=== PATIENT | female | born 1995 | race Hispanic/Latino ===

== ENCOUNTER 2022-05-12 04:37 | Emergency (ER) | payer BC, MEDICAID, OTHER ==
[~2022-05-12] VITALS: Ht 157.5 cm; Wt 65.8 kg
[2022-05-12 04:39] VITALS: BP 140/99
[2022-05-12] MEDS ORDERED: AMOX500C2 PO (04:53)
[2022-05-12] MEDS ORDERED: IBUP-1493 PO (04:53)
[2022-05-12] MEDS ORDERED: KETOROLAC 60 MG VIAL (30MG/ML) IM ONE ×2 (04:58→05:00)
[2022-05-12] MEDS ORDERED: AMOXICILLIN 500 MG CAPSULE PO ONE ×2 (04:59→05:00)
== END 2022-05-12 05:21 | disposition home or self-care (01) ==
LOC: EDH 04:37
DX: H66.92 Otitis media, unspecified, left ear (principal)
CPT/HCPCS: 99284; 96372; J1885

== ENCOUNTER → 2025-04-16 | Outpatient (CLI) | payer BC ==
[~2025-04-16] MED LIST: AMOX500C2 PO; IBUP-1493 PO; IOHEXOL-350 50ML VIAL IV ONE; LIDOCAINE HCL 1% 20 ML VIAL ONE
--- NOTE | 2025-04-16 10:44 | HMCIMG ---
THORASCOPIC GUIDED LEFT HIP ARTHROGRAM. INDICATION: HIP PAIN DISCUSSION: The risk, benefit, alternative and possible complications were explained to the patient in detail and written informed consent was obtained. The patient was placed supine on the table. The left hip was prepped and draped in the usual sterile fashion after obtaining consent from the patient. 1% lidocaine without epinephrine was used for local anesthesia. Under fluoroscopic guidance, a 22 gauge needle was introduced into the left hip joint. A 10 cc mixture of 0.5 cc of MultiHance; 17 mL of saline and 4 mL of Isovue 300 was prepared. 12 cc of the combination solution was then injected into the left hip joint. The needle was removed and there were no immediate complications. A few fluoroscopic images were obtained in various projections. There were no complication and the patient tolerated the procedure. The patient was taken to the MR suite for MR arthrogram. IMPRESSION: Status post uneventful intraarticular gadolinium injection of the left hip for MR arthrogram as described above.
--- NOTE | 2025-04-16 13:27 | HMCIMG ---
EXAM: MR Left Lower Extremity Without IV Contrast, Hip. CLINICAL HISTORY: S73.192A ??? Other sprain of left hip, initial encounter. Patient complains of numbness and inability to bear weight following arthrogram injection. TECHNIQUE: Multisequence, multiplanar magnetic resonance images of the left hip without intravenous contrast. Series acquired: 3 - COR STIR LT - TR: 4656.0 - TE: 52.3 - ET: 15.0 - Thk: 4.0 4 - COR T2 LT - TR: 3385.0 - TE: 105.8 - ET: 17.0 - Thk: 4.0 5 - COR T1 LT - TR: 473.0 - TE: 17.1 - ET: 4.0 - Thk: 4.0 6 - AX T2 FS LT - TR: 4532.0 - TE: 65.2 - ET: 16.0 - Thk: 4.0 7 - AX T1 LT - TR: 594.0 - TE: 13.3 - ET: 9.0 - Thk: 4.0 8 - AX STIR LT - TR: 4266.0 - TE: 47.6 - ET: 15.0 - Thk: 4.0 9 - SAG T2 LT - TR: 5138.0 - TE: 104.6 - ET: 14.0 - Thk: 4.0 10 - SAG 2D MERGE LT - TR: 1053.2 - TE: 13.9 - ET: 4.0 - Thk: 4.0 13 - G+ SAG T1 FS LT - TR: 679.0 - TE: 17.2 - ET: 5.0 - Thk: 4.0 15 - G+ COR T1 FS LT - TR: 682.0 - TE: 17.1 - ET: 5.0 - Thk: 4.0 16 - G+ AX T1 FS LT - TR: 643.0 - TE: 14.1 - ET: 7.0 - Thk: 4.0 CONTRAST: None. COMPARISON: None provided.FINDINGS: TENDONS: FLEXORS: Iliopsoas tendon demonstrates peritendinous T2/STIR hyperintensity with surrounding myofascial edema at and near its insertion on the lesser trochanter. Associated localized fluid collection measuring approximately ___ cm (T2 hyperintense, T1 hypointense) consistent with postprocedural inflammatory fluid. EXTENSORS / HAMSTRING: Intact. No edema, tear, or tendinosis. ABDUCTORS: Gluteus medius and minimus tendons intact. No evidence of tendinopathy or peritendinous fluid. ADDUCTORS: Intact and symmetric. No tear or edema. ROTATORS: Piriformis and short external rotators normal in morphology and signal. BONES: Normal marrow signal intensity. No evidence of fracture, osteonecrosis, or marrow edema. MUSCLES: Mild myofascial edema involving the iliacus and proximal psoas muscles. Remaining hip musculature demonstrates normal signal and bulk. FLUID: Small localized anterior and peritendinous fluid collection adjacent to the iliopsoas insertion and anterior hip soft tissues. No significant intra-articular effusion. LABRUM: No discrete tear, detachment, or paralabral cyst identified. Contrast distribution from prior arthrogram is within the joint capsule without extravasation. CARTILAGE: Femoral head and acetabular cartilage smooth and intact. No focal chondral defect.IMPRESSION: * Postprocedural myofascial and peritendinous changes involving the iliopsoas tendon with localized fluid collection near the lesser trochanter and anterior hip soft tissues ??? likely secondary to recent arthrogram injection. * No evidence of labral tear, osseous injury, or hip joint effusion. * No muscular or tendinous tear elsewhere.RADIOLOGIC???CLINICAL CORRELATION: The imaging features represent post-arthrogram localized fluid tracking along the iliopsoas tendon and anterior hip fascia, favored sterile and procedure-related rather than infective. Overall, the hip joint and periarticular structures remain structurally intact. /[place]
== END | disposition home or self-care (01) ==
LOC: RAH 08:17
PROVIDERS: ATTEND Orthopaedic Surgery
DX: S73.192A Other sprain of left hip, initial encounter (principal); Z79.899 Other long term (current) drug therapy; X58.XXXA Exposure to other specified factors, initial encounter; Y93.89 Activity, other specified; Y92.89 Other specified places as the place of occurrence of the external cause; Y99.8 Other external cause status
CPT/HCPCS: 73723; 77002; 27093; Q9967; 73525

== ENCOUNTER 2025-06-18 16:07 | Emergency (ER) | payer BC ==
[~2025-06-18] VITALS: Ht 157.5 cm; Wt 72.6 kg
[~2025-06-18 16:07] MED LIST changes: -IOHEXOL-350 50ML VIAL IV ONE; -LIDOCAINE HCL 1% 20 ML VIAL ONE
--- NOTE | 2025-06-18 16:16 | ERN ---
ED Note History of Present Illness Stated Complaint: PELVIC PAIN Chief Complaint: Pelvic Pain Time Seen by MD: 16:10 Dictation: PATIENT IS A 29-YEAR-OLD FEMALE HERE WITH COMPLAINTS OF INTERMITTENT LEFT ADNEXAL PAIN THAT GOT WORSE THIS AFTERNOON AT 14:00 HOURS. NO VAGINAL BLEEDING NO CHANGE IN URINATION. SHE HAS NO FLANK PAIN SHE STATES HER OB HIS DOCTOR JUAN PABLO BEAUCHAMP SHE SAW HIM ABOUT THE SAME PAIN AND HE TOLD HER HE WOULD DO A WORKUP AND SHE NEEDED AN ULTRASOUND HOWEVER ALL HE ORDERED WITH SOME LABS. PATIENT STATES SHE HAS HAD MULTIPLE TEST AND THEY ARE NEGATIVE HER LAST MENSTRUAL PERIOD WAS IN JANUARY 2025. Allergies: Coded Allergies: No Known Drug Allergies (Unverified Allergy, Unknown, 05/12/22) Home Meds Active Scripts Ibuprofen (Motrin/Advil) 800 Mg Tab, 800 MG PO TID, #30 TAB Prov:AGUSTIN TINAJERO MD 05/12/22 Amoxicillin (Amoxicillin) 500 Mg Capsule, 500 MG PO TID for 10 Days, #30 CAP 0 Refills Prov:AGUSTIN TINAJERO MD 05/12/22 Past Medical History Past Medical History: Other Additional Past Medical Hx: ENDOMETRIOSIS Surgical History: None Family History: Negative Social History: Negative, Lives with family LMP: Feb 03, 2025 RN Note Reviewed/Agreed w/PFSH: Yes Review of System Dictation CONSTITUTIONAL: NEGATIVE EXCEPT FOR HPI HEAD/FACE: NEGATIVE EXCEPT FOR HPI EENT: NEGATIVE EXCEPT FOR HPI RESPIRATORY: NEGATIVE EXCEPT FOR HPI GASTROINTESTINAL/ABDOMINAL: NEGATIVE EXCEPT FOR HPI INTERMITTENT LEFT ADNEXAL/PELVIC PAIN GENITOURINARY: NEGATIVE EXCEPT FOR HPI MUSCULOSKELETAL: NEGATIVE EXCEPT FOR HPI INTEGUMENTARY: NEGATIVE EXCEPT FOR HPI NEUROLOGICAL/PSYCH: NEGATIVE EXCEPT FOR HPI HEMATOLOGIC/LYMPHATIC: NEGATIVE EXCEPT FOR HPI ALL SYSTEMS NEGATIVE, EXCEPT NOTED ABOVE. 13 POINT REVIEW OF SYSTEMS ASSESSED AND ALL NEGATIVE EXCEPT FOR ABOVE. Initial Vital Sign VS Vital Signs Date Time Temp Pulse Resp B/P (MAP) Pulse Ox O2 Delivery O2 Flow Rate FiO2 06/18/25 16:09 97.9 81 20 128/61 99 Room Air 06/18/25 16:45 0 21 Physical Exam Dictation VITAL SIGNS REVIEWED GENERAL APPEARANCE: ALERT, ORIENTED X 3, MILD ACUTE DISTRESS, WELL DEVELOPED, NOURISHED. HEAD AND FACE: NON-TRAUMATIC. EYES: PERRL, PINK CONJUNCTIVAS, EYELID NO TRAUMA, ANTERIOR CHAMBER WITH ARCUS SENILIS. EARS: PINNAS INTACT AND NO SIGNS OF TRAUMA OR ERYTHEMA EAR CANALS CLEAR AND NO DISCHARGE TM NO ERYTHEMA NOSE: NO DISCHARGE, NO BLEEDING. OROPHARYNX: MOUTH NORMAL, TONGUE PINK, PHARYNX CLEAR,NO ERYTHEMA, TONSILS NO EXUDATES, NO ABSCESSES NOTED, MUCOUS MEMBRANE MOIST NECK: SUPPLE, NON-TENDER, NO THYROMEGALY, NO MASSES, NO JVD, NO BRUITS BREAST:DEFERRED CHEST:NO TENDERNESS, NO CREPITUS, NO PARADOXICAL MOVEMENT, NO RETRACTIONS LUNGS:CLEAR, WELL-VENTILATED, SYMMETRIC, NO RALES, NO WHEEZING, NO RHONCHI, NO STRIDOR, GOOD BREATH SOUNDS BILATERALLY HEART: REGULAR RATE, REGULAR RHYTHM, NO MURMUR, NO GALLOPS VASCULAR: NO PERIPHERAL EDEMA, ABDOMEN: SOFT, POSITIVE BOWEL SOUNDS, NONDISTENDED, NO GUARDING, [id number] LEFT LOWER ADNEXAL PELVIC PAIN. RECTAL: DEFERRED GENITAL: DEFERRED NEUROLOGICAL: NORMAL SPEECH, MOTOR FUNCTION INTACT, SENSORY FUNCTION INTACT MUSCULOSKELETAL: NECK NONTENDER, FULL RANGE OF MOTION, BACK NONTENDER, FULL RANGE OF MOTION, EXTREMITIES: NONTENDER, FULL RANGE OF MOTION SKIN: COLOR PINK, DRY, NO TURGOR, NO RASH, NO LACERATIONS, NO ABRASIONS, NO CONTUSIONS. LYMPHATIC: DEFERRED Results (Laboratory/Radiology) Laboratory/Radiology Laboratory Tests Test 06/18/25 16:55 White Blood Count 9.8 K/uL (4.8-10.8) Red Blood Count 4.14 MIL/uL (4.00-5.50) Hemoglobin 12.9 g/dL (12.0-16.0) Hematocrit 37.2 % (36-48) Mean Corpuscular Volume 89.9 fL (79-99) Mean Corpuscular Hemoglobin 31.2 pg (27.0-33.0) Mean Corpuscular Hemoglobin Concent 34.7 g/dL (32.0-36.0) Red Cell Distribution Width 13.2 % (11.0-15.5) Platelet Count 407 K/uL (130-400) H Mean Platelet Volume 9.0 fL (7.5-10.5) Immature Granulocyte % (Auto) 0.3 % (0-1) Neutrophils (%) (Auto) 63.1 % (40.0-77.0) Lymphocytes (%) (Auto) 27.9 % (21.0-51.0) Monocytes (%) (Auto) 6.1 % (3.0-13.0) Eosinophils (%) (Auto) 1.9 % (0.0-8.0) Basophils (%) (Auto) 0.7 % (0.0-5.0) Neutrophils # (Auto) 6.2 K/uL (1.8-7.7) Lymphocytes # (Auto) 2.7 K/uL (1.0-4.8) Monocytes # (Auto) 0.6 K/uL (0.1-1.0) Eosinophils # (Auto) 0.19 K/uL (0.00-0.70) Basophils # (Auto) 0.07 K/uL (0.00-0.20) Absolute Immature Granulocyte (auto 0.03 K/uL (0-1) Nucleated Red Blood Cells 0.0 % (0.0-0.19) Sodium Level 137 mmol/L (136-145) Potassium Level 3.5 mmol/L (3.5-5.1) Chloride Level 106 mmol/L (101-111) Carbon Dioxide Level 23 mmol/L (21-32) Blood Urea Nitrogen 5 mg/dL (7-18) L Creatinine 0.9 mg/dL (0.5-1.0) Glomerular Filtration Rate Calc 89 mL/min (>90) Random Glucose 83 mg/dL (70-105) Total Calcium 9.1 mg/dL (8.5-10.1) Serum Test, Qualitative NEGATIVE (NEGATIVE) 1728/NON OB ULTRASOUND DEMONSTRATES A COMPLEX LEFT OVARIAN CYST SIZE 1.7 X 2.1 X 1.6 CM POSITIVE BLOOD FLOW TO BOTH OVARIES Labs Reviewed?: Yes ED Course ED Course Orders Procedure Category Date Status Time Us Pelvic Non-Ob US 06/18/25 Resulted Limited 16:12 Cbc With Differential LAB 06/18/25 Complete 16:12 Urinalysis Profile LAB 06/18/25 Logged 16:12 Basic Metabolic Panel LAB 06/18/25 Complete 16:12 Testing, LAB 06/18/25 Complete Serum Hcg 16:12 Acetaminophen 500mg PHA 06/18/25 Complete Tab (Tylenol 500mg T 16:30 Ondansetron 4mg Inj PHA 06/18/25 Complete (Zofran 4mg Inj) 17:16 0.9%Nacl 1000ml (Ns PHA 06/18/25 Complete 1000ml) 17:30 Ondansetron 4mg Inj PHA 06/18/25 Complete (Zofran 4mg Inj) 17:30 Ketorolac PHA 06/18/25 Complete Tromethamine 30mg/Ml 17:30 Ketorolac PHA 06/18/25 Complete Tromethamine 30mg/Ml 17:29 Current Medications Medications (Trade) Dose Ordered Sig/Angela Route PRN Reason Start Time Stop Time Status Last Admin Dose Admin Acetaminophen (TYLenol 500MG TAB) 1,000 mg ONCE ONCE PO 06/18/25 16:30 06/18/25 16:31 DC 06/18/25 16:41 Ketorolac Tromethamine (toRADol) 30 mg ONCE ONCE IVP 06/18/25 17:30 06/18/25 17:31 DC 06/18/25 17:32 Ketorolac Tromethamine (toRADol) 30 mg STK-MED ONCE .ROUTE 06/18/25 17:29 06/18/25 17:29 DC Ondansetron HCl (zoFRAN 4MG INJ) 4 mg ONCE ONCE IVP 06/18/25 17:30 06/18/25 17:31 DC 06/18/25 17:32 Ondansetron HCl (zoFRAN 4MG INJ) 4 mg STK-MED ONCE .ROUTE 06/18/25 17:16 06/18/25 17:16 DC Sodium Chloride 1,000 ml @ 0 mls/hr ONCE ONCE IV 06/18/25 17:30 06/18/25 17:31 DC 06/18/25 17:30 Vital Signs Date Time Temp Pulse Resp B/P (MAP) Pulse Ox O2 Delivery O2 Flow Rate FiO2 06/18/25 16:45 98.4 90 18 121/76 99 Room Air* 0 21 06/18/25 16:41 97.9 06/18/25 16:09 97.9 81 20 128/61 99 Room Air 1800/DISCUSSED CLINICAL FINDINGS WITH PATIENT. THIS INCLUDES THE NON OB ULTRASOUND THAT DEMONSTRATES A RIGHT OVARIAN CYST POSITIVE BLOOD FLOW TO BOTH OVARIES SHE IS CURRENTLY OUT OF PAIN IN HIS AWARE TO FOLLOW UP WITH DR. BEAUCHAMP IN THE NEXT 1-2 DAYS IF PAIN GETS WORSE. Medical Decision Making MDM MDM: DIFFERENTIAL DIAGNOSIS: ECTOPIC /PELVIC PAIN/HERNIA/PAIN OF /UTI/ELECTROLYTE IMBALANCE/DEHYDRATION RATIONALE: TESTS CONSIDERED AND ORDERED SECONDARY TO SHARED DECISION MAKING INCLUDE: LABS/RADIOLOGY PREVIOUS OUTSIDE RECORDS REVIEWED: OLD ER VISITS. RISK OF COMPLICATION AND/OR MORBIDITY OR MORTALITY OF PATIENT MANAGEMENT: NONE MEDICATIONS-PER MEDICATION RECONCILIATION NEED FOR HOSPITALIZATION: PATIENT DOES NOT MEET CRITERIA FOR HOSPITALIZATION. NONE NEED FOR EMERGENCY MAJOR/MINOR SURGERY: NO THERE ARE NO SOCIAL CONCERNS WITH THIS PATIENT. PRESCRIPTION DRUG MANAGEMENT IBUPROFEN PRESCRIPTIONS WILL INCLUDE SYMPTOMATIC CARE PATIENT'S PRIOR EXTERNAL MEDICAL RECORDS FROM OTHER ER VISITS WERE REVIEWED BY ME INDICATED. PRIOR TESTING AND RESULTS FROM PREVIOUS VISITS WERE REVIEWED. PRIOR TESTS WERE TAKEN INTO ACCOUNT WITH MEDICAL DECISION MAKING AND RESOURCE UTILIZATION, INDEPENDENT HISTORIAN/HISTORIANS WERE USED TO OBTAIN COMPLETE MEDICAL HISTORY. I INDEPENDENTLY INTERPRETED THE TEST THAT WERE PERFORMED, RESULTS WERE REVIEWED BY ME AND CONSIDERED FINDINGS ON RADIOLOGY IF ORDERED. MEDICAL MANAGEMENT AND EXAMINATION INTERPRETATION DISCUSSIONS WERE HAD BY ME WITH OTHER QUALIFIED HEALTHCARE PROFESSIONALS INDICATED FOR THE PATIENT'S CARE. DX & DISP Disposition: Discharge Departure Impression: Primary Impression: Left ovarian cyst Additional Impression: Dehydration Condition: Stable Scripts Ibuprofen (Ibuprofen 800 mg Tab) 800 Mg Tab 800 MG PO Q8H PRN for fever or pain, #30 TAB 0 Refills Prov: BAMBI HILLS 06/18/25 Additional Instructions: FOLLOW-UP WITH PRIMARY CARE PROVIDER IN 1 TO 2 DAYS. TAKE MEDICATIONS DIRECTED HERE IN THE EMERGENCY ROOM. OKAY TO CONTINUE HOME MEDICATIONS UNLESS OTHERWISE DISCUSSED DURING YOUR VISIT IN THE EMERGENCY ROOM TODAY. RETURN TO YOUR NEAREST EMERGENCY ROOM IF SYMPTOMS WORSEN OR IF THERE IS NO IMPROVEMENT. CALL 911 IF YOU NEED IMMEDIATE ASSISTANCE. TAKE TYLENOL OR MOTRIN O [id number] NEEDED AND IF NO CONTRAINDICATIONS ARE PRESENT. INCREASE ORAL HYDRATION. A WOUND CULTURE OR URINE CULTURE WAS ORDERED HERE IN THE EMERGENCY ROOM DEPARTMENT PLEASE FOLLOW-UP WITH PRIMARY CARE PROVIDER AND ADVISE THEM TO GET REPEAT PORTS FROM OUR FACILITY. IF YOU HAD ANY RONALDO WRAP/SPLINTS THAT WERE APPLIED HERE, PLEASE DO NOT REMOVE THEM UNTIL YOU SEE YOUR PRIMARY CARE OR SPECIALTY. TAKE IBUPROFEN EVERY 6-8 HOURS WITH FOOD NEEDED FOR PAIN. WARM COMPRESSES TO ABDOMEN THREE TO 4 TIMES A DAY. FOLLOW UP WITH DR. JUAN PABLO BEAUCHAMP FOR MANAGEMENT OF YOUR LEFT OVARIAN CYST Referrals: STELLA BARRON MD (PCP) Time of Disposition: 17:59 I have reviewed the case, and I agree with, Diagnosis and Plan BAMBI HILLS Jun 18, 2025 16:16
[2025-06-18 17:15] LABS: IMMATURE GRANULOCYTE ABSOLUTE 0.03 K/uL (0-1); NUCLEATED RED BLOOD CELLS 0.0 % (0.0-0.19); PLATELET COUNT (AUTO) 407 K/uL (130-400); RED BLOOD CELL COUNT(AUTO) 4.14 MIL/uL (4.00-5.50); RED CELL DISTRIBUTION WIDTH 13.2 % (11.0-15.5); WHITE BLOOD COUNT (AUTO) 9.8 K/uL (4.8-10.8)
[2025-06-18 17:25] LABS: CREATININE 0.9 mg/dL (0.5-1.0); GLOMERULAR FILTR. RATE CALC 89.0 mL/min (>90); GLUCOSE,RANDOM 83.0 mg/dL (70-105); SODIUM SERUM 137.0 mmol/L (136-145); UREA NITROGEN, BLOOD 5.0 mg/dL (7-18)
[2025-06-18] MEDS: 0.9%NACL 1000ML 1,000 ML IV ONE (17:30)
--- NOTE | 2025-06-18 17:34 | HMCIMG ---
STUDY: Ultrasound Pelvis Female Transabdominal HISTORY: 29-year-old female with left pelvic pain. Known history of endometriosis. test not available at the time of examination. TECHNIQUE: Transabdominal pelvic ultrasound performed using grayscale and color Doppler imaging. COMPARISON: None provided. FINDINGS: The uterus is normal in position and contour, measuring approximately 6.5 3.7 3.3 cm. The myometrium appears homogeneous without a discrete focal lesion. The endometrium measures approximately 7 mm in thickness and is within expected limits on transabdominal assessment. The right ovary measures approximately 2.7 1.5 2.5 cm and demonstrates a normal follicular pattern. Color Doppler shows preserved ovarian blood flow. The left ovary measures approximately 3.3 1.9 2.9 cm. Within the left ovary, there is a complex cystic lesion measuring approximately 1.7 2.1 1.6 cm. Color Doppler demonstrates preserved ovarian blood flow. No free fluid is identified in the cul-de-sac. IMPRESSION: * Left ovarian complex cyst measuring approximately 2.1 cm on transabdominal imaging, corresponding to the site of pain, in the context of known endometriosis. * Preserved bilateral ovarian blood flow, with no sonographic evidence of ovarian torsion on this examination. * Unremarkable uterus and right ovary on transabdominal evaluation. /[place]
[2025-06-18 17:41] VITALS: TEMP 97.9
[2025-06-18] MEDS ORDERED: IBUP-2077 PO (18:01)
[2025-06-18 18:30] VITALS: BP 115/73; PULSE 90; RESP 18; TEMP 98.6; O2SAT 99
[2025-06-18 18:32] LABS: APPEARANCE,URINE CLEAR (CLEAR); GLUCOSE, URINE (UA) NEGATIVE (NEGATIVE); LEUKOCYTE ESTERASE ,URINE NEGATIVE Leu/uL (NEGATIVE); NITRATE,URINE NEGATIVE (NEGATIVE); OCCULT BLOOD,URINE NEGATIVE (NEGATIVE)
[2025-06-18 18:33] LABS: ADD UA MICROSCOPIC YES
[2025-06-18 18:37] LABS: SQUAMOUS EPITHELIAL CELL,UR RARE /HPF (0-2)
== END 2025-06-18 18:47 | disposition home or self-care (01) ==
LOC: EDH 16:07
DX: N83.202 Unspecified ovarian cyst, left side (principal); E86.0 Dehydration; Z79.1 Long term (current) use of non-steroidal anti-inflammatories (NSAID)
CPT/HCPCS: 99284; 96374; 76857; 96361; 96375; 80048; 84703; 85025; 81001; 36415; J1885; J7030; J2405